=== PATIENT | female | born 2005 | race African-American/Black ===

== ENCOUNTER 2025-02-12 00:09 | Emergency (ER) | payer OTHER ==
[~2025-02-12] VITALS: Ht 175.3 cm; Wt 71.9 kg
[2025-02-12 00:16] VITALS: O2SAT 99
[2025-02-12 01:05] LABS: BASOPHILS % 0.9 % (0.0-2.0); EOSINOPHILS % 3.0 % (0.0-5.0); HEMATOCRIT. 33.2 % (36.0-48.0); HEMOGLOBIN. 10.4 g/dL (12.0-16.0); LYMPHOCYTES % 24.0 % (20.0-50.0); MEAN PLATELET VOLUME 7.6 fl (7.4-10.4); MONOCYTES % 13.0 % (2.0-8.0); NEUTROPHILS % 59.1 % (40.0-76.0); PLATELET 346 x1000/uL (130-400); RED BLOOD CELL COUNT 4.20 mill/uL (4.2-5.4); RED CELL DISTRIBUTION WIDTH 18.5 % (11.6-14.6)
[2025-02-12 01:07] LABS: CLARITY URINE CLOUDY (CLEAR); COLOR URINE YELLOW (YELLOW); GLUCOSE URINE NEGATIVE (NEGATIVE); KETONES URINE NEGATIVE (NEGATIVE); LEUKOCYTE ESTERASE URINE TRACE (NEGATIVE); NITRITE URINE NEGATIVE (NEGATIVE); OCCULT BLOOD URINE NEGATIVE (NEGATIVE); PH URINE 7.5 (4.5-8.0); PROTEIN URINE NEGATIVE (NEGATIVE); SPECIFIC GRAVITY URINE 1.024 (1.005-1.030); UROBILINOGEN URINE 0.2 E.U./dL (0.2-1.0)
[2025-02-12 01:17] LABS: CREATININE 0.8 mg/dL (0.6-1.0); UREA NITROGEN BLOOD 12 mg/dL (9-23)
[2025-02-12 01:37] LABS: BACTERIA URINE 2+; RBC URINE 0-2 /hpf (0-2); SQUAMOUS EPITHELIAL CELL URINE 1+ /lpf (RARE/1+)
[2025-02-12 01:38] LABS: AMORPHOUS SEDIMENT URINE 1+ /lpf
[2025-02-12] MEDS: ACETAMINOPHEN 325MG TABLET PO ONE (02:07)
[2025-02-12 02:43] LABS: HCG SCREEN NEGATIVE
[2025-02-12] MEDS ORDERED: HYDR453.3 TP (04:28)
[2025-02-12 04:32] VITALS: BP 114/81; PULSE 79; RESP 18; TEMP 36.8; O2SAT 100
[2025-02-13 04:12] LABS: HSV TYPE 2 SPECIFIC AB IGG Non Reactive (Non Reactive)
== END 2025-02-12 04:36 | disposition home or self-care (01) ==
LOC: ER 00:09
DX: R10.2 Pelvic and perineal pain (principal); R21 Rash and other nonspecific skin eruption
CPT/HCPCS: 86695; 86696; 80048; 81003; 81025; 84703; 85025; 86592; 36415; 76830; 76856; 99284; Z7610 ×2; A4606